=== PATIENT | female | born 1950 | race Caucasian/White ===

== ENCOUNTER 2018-07-19 17:43 | Observation (INO) | payer SELFPAY ==
[2018-07-19] MEDS ORDERED: Sodium Chloride 0.9% 500 ML IV ONE (18:14)
--- NOTE | 2018-07-19 18:22 | C.PDOC ---
History Of Present Illness 67 y/o female, with history of hypertension, comes in for evaluation of dizziness and feeling nauseous. Patient is also complaining of right ear tinnitus that started this afternoon. Patient was a poor historian. She states she feels like everything is moving. Otherwise she denies fever, chills, or vomiting, and has no other complaints. Time Seen by Provider: 07/19/18 18:05 Chief Complaint (Nursing): GI Problem History Per: Patient History/Exam Limitations: None Onset/Duration Of Symptoms: Hrs Current Symptoms Are (Timing): Still Present Past Medical History Reviewed: Historical Data, Nursing Documentation, Vital Signs Vital Signs: Last Vital Signs Temp 98.6 F 07/19/18 17:52 Pulse 61 07/19/18 17:52 Resp 20 07/19/18 17:52 BP 162/88 H 07/19/18 17:52 Pulse Ox 99 07/19/18 17:52 - Medical History PMH: Gastritis, HTN Surgical History: Cholecystectomy Family History: States: No Known Family Hx - Social History Hx Tobacco Use: No Hx Alcohol Use: No Hx Substance Use: No - Immunization History Hx Tetanus Toxoid Vaccination: No Hx Influenza Vaccination: No Hx Pneumococcal Vaccination: No Review Of Systems Except As Marked, All Systems Reviewed And Found Negative. Constitutional: Negative for: Fever, Chills ENT: Positive for: Other (Right ear tinnitus) Gastrointestinal: Positive for: Nausea. Negative for: Vomiting Neurological: Positive for: Dizziness Physical Exam - Physical Exam Appears: Non-toxic, No Acute Distress Skin: Warm, Dry Head: Atraumatic, Normacephalic Eye(s): bilateral: Other (horizontal nystagmus) Oral Mucosa: Moist Neck: Supple Cardiovascular: Rhythm Regular, No Murmur Respiratory: Normal Breath Sounds, No Rales, No Rhonchi, No Wheezing Gastrointestinal/Abdominal: Soft, No Tenderness, No Guarding, No Rebound Extremity: No Pedal Edema Extremity: Bilateral: Atraumatic, Normal ROM Neurological/Psych: Oriented x3, Normal Speech, Normal Cognition Gait: Steady ED Course And Treatment - Laboratory Results Result Diagrams: 07/21/18 07:54 07/21/18 07:54 O2 Sat by Pulse Oximetry: 99 (RA) Pulse Ox Interpretation: Normal (R) - CT Scan/US Head CT Other Rad Studies (CT/US): Read By Radiologist, Radiology Report Reviewed CT/US Interpretation: IMPRESSION: 1. Age-appropriate cerebellar and cerebral atrophy. 2. Mild chronic microvascular disease. 3. No evidence of acute intracranial pathology. NIHSS Stroke Scale - Date/Time Evaluation Performed Date Performed: 07/19/18 Time Performed: 19:00 When Was NIHSS Performed: Baseline - How Severe is the Stoke Level of Consciousness: 0=Alert LOC to Questions: 0=Both comments correct LOC to commands: 0=Obeys both correctly Best Gaze: 0=Normal Visual: 0=No visual loss Facial: 0=Normal Motor Arm - Left: 0=No drift Motor Arm - Right: 0=No drift Motor Leg - Left: 0=No drift Motor Leg - Right: 0=No drift Limb Ataxia: 0=Absent Sensory: 0=Normal Best Language: 0=No aphasia Dysarthia: 0=Normal articulation Extinction & Inattention (Neglect): 0=Normal, no object Score: 0 rTPA Inclusion/Exclusion - Refusal of Treatment Patient Refused Treatment: No - Inclusion Criteria for Altepase Patient is 18 years or Older: Yes The Clinical Diagnosis of Ischemic Stroke That is Causing a Potentially Disabling Neurological Deficit: No Time of Onset is Well Established to be Less Than 270 Minute Before Treatment Would Begin: No Risk/Benefit Discussed With Patient/Family Member Present: No Medical Decision Making Medical Decision Making: likely peripheral vertigo. Plan: --Head CT --Labs --UA --Antivert 25 mg PO --IV fluids --Zofran 4 mg IV suspect peripheral vertigo, although pt persistently symtpomatic. asa given will admit to ro posterior cva. Disposition - Disposition Disposition: HOSPITALIZED Disposition Time: 08:00 Condition: GOOD - Clinical Impression Clinical Impression: Vertigo - Scribe Statement The provider has reviewed the documentation as recorded by the Janel Vyas Provider Attestation: All medical record entries made by the Janel were at my direction and personally dictated by me. I have reviewed the chart and agree that the record accurately reflects my personal performance of the history, physical exam, medical decision making, and the department course for this patient. I have also personally directed, reviewed, and agree with the discharge instructions and disposition.
[2018-07-19] MEDS ORDERED: Sodium Chloride 0.9% 1,000 ML ONE (18:25)
[2018-07-19 18:36] LABS: BASO % 0.2 % (0.0-2.0); EOS % 0.7 % (0.0-4.0); HEMOGLOBIN 13.8 g/dL (11.0-16.0); LYMPH # 1.7 K/uL (1.0-4.3); LYMPH % 28.5 % (20.0-40.0); MEAN CELL VOLUME 87.1 fL (81.0-99.0); MEAN CORPUSCULAR HEMOGLOBIN 28.4 pg (27.0-31.0); MEAN CORPUSCULAR HGB CONC 32.6 g/dL (33.0-37.0); MEAN PLATELET VOLUME 8.5 fL (7.2-11.7); MONO # 0.4 K/uL (0.0-0.8); MONO % 7.2 % (0.0-10.0); NEUT # 3.7 K/uL (1.8-7.0); NEUT % 63.4 % (50.0-75.0); RBC 4.86 Mil/uL (3.80-5.20); RED CELL DISTRIBUTION WIDTH 14.2 % (11.5-14.5); WHITE BLOOD COUNT 5.9 K/uL (4.8-10.8)
[2018-07-19 18:46] LABS: PROTHROMBIN TIME 11.4 SECONDS (9.7-12.2)
[2018-07-19 18:49] LABS: ALB/GLOB RATIO 1.5 (1.0-2.1); ALBUMIN 4.6 g/dL (3.5-5.0); ALT/SGPT 21 U/L (9-52); AST/SGOT 27 U/L (14-36); BLOOD UREA NITROGEN 16 mg/dL (7-17); CALCIUM 10.2 mg/dl (8.6-10.4); GFR NON-AFRICAN AMERICAN > 60
[2018-07-19 19:17] LABS: SQUAMOUS EPITHIAL 10 /hpf (0-5); URINE BACTERIA MANY (<OCC); URINE BILIRUBIN NEGATIVE (NEGATIVE); URINE BLOOD NEGATIVE (NEGATIVE); URINE CLARITY Hazy (Clear); URINE COLOR Yellow (YELLOW); URINE GLUCOSE (UA) NORMAL (Normal); URINE LEUKOCYTE ESTERASE 2+ Leu/uL (Negative); URINE PROTEIN NEGATIVE (NEGATIVE); URINE UROBILINOGEN NORMAL mg/dL (0.2-1.0)
--- NOTE | 2018-07-19 20:27 | CP.PCM.HP ---
<Damian Jung - Last Filed: 07/20/18 00:01> History of Present Illness - History of Present Illness History of Present Illness: H&P for Risk Analyst Dr. Ramos. 67 F w/ PMhx of HTN presents to ED for dizziness & nausea. Patient states symptoms began in the morning after she woke up and noticed symptoms progressively got worse, prompting her to the hospital. Patient describes the dizziness as she is spinning around. Patient denies vomiting, SOB, chest pain, headaches, vision changes. Patient admits to ringing in the ear since this morning. Patient reports she occasionally uses some type of spray to clean ears; however, she has not been able to fully clean her ears today. Patient denies sick contacts, recent illness. Patient reports having traveled from [facility] approximately 15 days prior. ROS: Denies headaches, vision changes, fevers, chills, chest pain, SOB, cough, abdominal pain, constipation, diarrhea, dysuria. PMD: None PMHx: HTN Meds: Telmisartan 40 PO daily Allergies: NKDA PSHx: cholecystectomy, SHx: Denies ETOH, tobacco, illicit drug use FHx: Denies any family history Present on Admission - Present on Admission Any Indicators Present on Admission: No History of DVT/PE: No History of Uncontrolled Diabetes: No Urinary Catheter: No Decubitus Ulcer Present: No Review of Systems - Constitutional Constitutional: absent: Chills, Fever - EENT Eyes: absent: Blurred Vision, Change in Vision Ears: Tinnitus, Dizziness. absent: Ear Discharge, Ear Pain Nose/Mouth/Throat: absent: Nasal Congestion, Nose Pain - Cardiovascular Cardiovascular: absent: Chest Pain, Chest Pain at Rest - Respiratory Respiratory: absent: Cough, Dyspnea, Hemoptysis - Gastrointestinal Gastrointestinal: absent: Abdominal Pain, Constipation, Diarrhea - Genitourinary Genitourinary: absent: Difficulty Urinating, Hematuria - Musculoskeletal Musculoskeletal: absent: Abnormal Gait, Arthralgias - Neurological Neurological: Abnormal Hearing, Dizziness. absent: Numbness, Loss of Vision - Endocrine Endocrine: absent: Flushing, Heat Intolorance Past Patient History - Past Social History Smoking Status: Never Smoked - CARDIAC Hx Hypertension: Yes - GASTROINTESTINAL Hx Gastritis: Yes - PSYCHIATRIC Hx Substance Use: No - SURGICAL HISTORY Hx Cholecystectomy: Yes - ANESTHESIA Hx Anesthesia: No Hx Anesthesia Reactions: No Meds Allergies/Adverse Reactions: Allergies Allergy/AdvReac Type Severity Reaction Status Date / Time No Known Allergies Allergy Unverified 07/19/18 17:54 Physical Exam - Constitutional Appears: Non-toxic, No Acute Distress - Head Exam Head Exam: NORMAL INSPECTION - Eye Exam Eye Exam: EOMI, Normal appearance Pupil Exam: NORMAL ACCOMODATION, PERRL - ENT Exam ENT Exam: Mucous Membranes Moist, TM's Normal Bilaterally Additional comments: No erythema around tympanic membrane, no effusion noted, no ear wax buildup - Neck Exam Neck exam: Negative for: Lymphadenopathy, Thyromegaly - Respiratory Exam Respiratory Exam: Clear to Auscultation Bilateral, NORMAL BREATHING PATTERN. absent: Rales, Rhonchi, Wheezes - Cardiovascular Exam Cardiovascular Exam: +S1, +S2, Systolic Murmur. absent: +S4 - GI/Abdominal Exam GI & Abdominal Exam: Normal Bowel Sounds, Soft - Extremities Exam Extremities exam: Positive for: full ROM, normal inspection. Negative for: calf tenderness, pedal edema - Back Exam Back exam: absent: CVA tenderness (L), CVA tenderness (R) - Neurological Exam Neurological exam: Alert, CN II-XII Intact, Oriented x3 Additional comments: Pt reports dizziness sitting up. Unable to test gait. - Psychiatric Exam Psychiatric exam: Normal Affect, Normal Mood - Skin Skin Exam: Dry, Intact, Normal Color, Warm Results - Vital Signs Recent Vital Signs: Last Vital Signs Temp 98.6 F 07/19/18 17:52 Pulse 58 L 07/19/18 18:55 Resp 11 L 07/19/18 18:55 BP 164/71 H 07/19/18 18:55 Pulse Ox 99 07/19/18 18:57 - Labs Result Diagrams: 07/19/18 18:27 07/19/18 18:27 Labs: Laboratory Results - last 24 hr 07/19/18 07/19/18 07/19/18 18:04 18:27 18:27 WBC 5.9 RBC 4.86 Hgb 13.8 Hct 42.3 MCV 87.1 MCH 28.4 MCHC 32.6 L RDW 14.2 Plt Count 192 MPV 8.5 Neut % (Auto) 63.4 Lymph % (Auto) 28.5 [place] % (Auto) 7.2 Eos % (Auto) 0.7 Baso % (Auto) 0.2 Neut # (Auto) 3.7 Lymph # (Auto) 1.7 [place] # (Auto) 0.4 Eos # (Auto) 0.0 Baso # (Auto) 0.0 PT 11.4 INR 1.0 APTT 35 H Sodium Potassium Chloride Carbon Dioxide Anion Gap BUN Creatinine Est GFR ( Amer) Est GFR (Non-Af Amer) POC Glucose (mg/dL) 137 H Random Glucose Calcium Total Bilirubin AST ALT Alkaline Phosphatase Total Protein Albumin Globulin Albumin/Globulin Ratio Urine Color Urine Clarity Urine pH Ur Specific [place] Urine Protein Urine Glucose (UA) Urine Ketones Urine Blood Urine Nitrate Urine Bilirubin Urine Urobilinogen Ur Leukocyte Esterase Urine WBC (Auto) Urine RBC (Auto) Ur Squamous Epith Cells Urine Bacteria 07/19/18 07/19/18 18:27 19:06 WBC RBC Hgb Hct MCV MCH MCHC RDW Plt Count MPV Neut % (Auto) Lymph % (Auto) [place] % (Auto) Eos % (Auto) Baso % (Auto) Neut # (Auto) Lymph # (Auto) [place] # (Auto) Eos # (Auto) Baso # (Auto) PT INR APTT Sodium 137 Potassium 3.9 Chloride 104 Carbon Dioxide 27 Anion Gap 11 BUN 16 Creatinine 0.8 Est GFR ( Amer) > 60 Est GFR (Non-Af Amer) > 60 POC Glucose (mg/dL) Random Glucose 132 H D Calcium 10.2 Total Bilirubin 0.5 AST 27 ALT 21 Alkaline Phosphatase 119 Total Protein 7.6 Albumin 4.6 Globulin 3.0 Albumin/Globulin Ratio 1.5 Urine Color Yellow Urine Clarity Hazy Urine pH 5.0 Ur Specific [place] 1.025 Urine Protein Negative Urine Glucose (UA) Normal Urine Ketones Negative Urine Blood Negative Urine Nitrate Negative Urine Bilirubin Negative Urine Urobilinogen Normal Ur Leukocyte Esterase 2+ H Urine WBC (Auto) 26 H Urine RBC (Auto) 5 H Ur Squamous Epith Cells 10 H Urine Bacteria Many H Assessment & Plan - Assessment and Plan (Free Text) Assessment: 67 F w/ PMhx of HTN presents to ED with sensation of dizziness & nausea, likely vertigo, systolic murmor noted on physical examination w/ no known prior history. Plan: Vertigo - CT head: negative - meclazine 25 mg PO Q6H - Fall precautions New Heart Murmur - F/u 2D echo in AM ? UTI - initial UA not a clean catch - repeat UA History of hypertension - c/w home medication telmisartan 40 PO daily PPx - DVT: SCDs, heparin 5000 SC Q8H <Casey Ramos - Last Filed: 07/20/18 06:13> Results - Vital Signs Recent Vital Signs: Last Vital Signs Temp 98 F 07/20/18 04:44 Pulse 55 L 07/20/18 04:44 Resp 16 07/20/18 04:44 BP 134/75 07/20/18 04:44 Pulse Ox 97 07/20/18 04:44 - Labs Result Diagrams: 07/20/18 05:23 07/20/18 05:23 Labs: Laboratory Results - last 24 hr 07/19/18 07/19/18 07/19/18 18:04 18:27 18:27 WBC 5.9 RBC 4.86 Hgb 13.8 Hct 42.3 MCV 87.1 MCH 28.4 MCHC 32.6 L RDW 14.2 Plt Count 192 MPV 8.5 Neut % (Auto) 63.4 Lymph % (Auto) 28.5 [place] % (Auto) 7.2 Eos % (Auto) 0.7 Baso % (Auto) 0.2 Neut # (Auto) 3.7 Lymph # (Auto) 1.7 [place] # (Auto) 0.4 Eos # (Auto) 0.0 Baso # (Auto) 0.0 PT 11.4 INR 1.0 APTT 35 H Sodium Potassium Chloride Carbon Dioxide Anion Gap BUN Creatinine Est GFR ( Amer) Est GFR (Non-Af Amer) POC Glucose (mg/dL) 137 H Random Glucose Calcium Phosphorus Magnesium Total Bilirubin AST ALT Alkaline Phosphatase Total Protein Albumin Globulin Albumin/Globulin Ratio Urine Color Urine Clarity Urine pH Ur Specific [place] Urine Protein Urine Glucose (UA) Urine Ketones Urine Blood Urine Nitrate Urine Bilirubin Urine Urobilinogen Ur Leukocyte Esterase Urine WBC (Auto) Urine RBC (Auto) Ur Squamous Epith Cells Urine Bacteria 07/19/18 07/19/18 07/20/18 18:27 19:06 05:23 WBC 4.8 RBC 4.40 Hgb 12.7 Hct 38.2 MCV 87.0 MCH 28.9 MCHC 33.2 RDW 14.0 Plt Count 174 MPV 8.4 Neut % (Auto) 46.9 L Lymph % (Auto) 43.1 H [place] % (Auto) 8.3 Eos % (Auto) 1.3 Baso % (Auto) 0.4 Neut # (Auto) 2.3 Lymph # (Auto) 2.1 [place] # (Auto) 0.4 Eos # (Auto) 0.1 Baso # (Auto) 0.0 PT INR APTT Sodium 137 Potassium 3.9 Chloride 104 Carbon Dioxide 27 Anion Gap 11 BUN 16 Creatinine 0.8 Est GFR ( Amer) > 60 Est GFR (Non-Af Amer) > 60 POC Glucose (mg/dL) Random Glucose 132 H D Calcium 10.2 Phosphorus Magnesium Total Bilirubin 0.5 AST 27 ALT 21 Alkaline Phosphatase 119 Total Protein 7.6 Albumin 4.6 Globulin 3.0 Albumin/Globulin Ratio 1.5 Urine Color Yellow Urine Clarity Hazy Urine pH 5.0 Ur Specific [place] 1.025 Urine Protein Negative Urine Glucose (UA) Normal Urine Ketones Negative Urine Blood Negative Urine Nitrate Negative Urine Bilirubin Negative Urine Urobilinogen Normal Ur Leukocyte Esterase 2+ H Urine WBC (Auto) 26 H Urine RBC (Auto) 5 H Ur Squamous Epith Cells 10 H Urine Bacteria Many H 07/20/18 05:23 WBC RBC Hgb Hct MCV MCH MCHC RDW Plt Count MPV Neut % (Auto) Lymph % (Auto) [place] % (Auto) Eos % (Auto) Baso % (Auto) Neut # (Auto) Lymph # (Auto) [place] # (Auto) Eos # (Auto) Baso # (Auto) PT INR APTT Sodium 139 Potassium 4.1 Chloride 107 Carbon Dioxide 27 Anion Gap 9 L BUN 15 Creatinine 0.7 Est GFR ( Amer) > 60 Est GFR (Non-Af Amer) > 60 POC Glucose (mg/dL) Random Glucose 105 D Calcium 9.6 Phosphorus 4.2 Magnesium 2.0 Total Bilirubin 0.3 AST 21 ALT 22 Alkaline Phosphatase 89 Total Protein 6.4 Albumin 3.9 Globulin 2.5 Albumin/Globulin Ratio 1.5 Urine Color Urine Clarity Urine pH Ur Specific [place] Urine Protein Urine Glucose (UA) Urine Ketones Urine Blood Urine Nitrate Urine Bilirubin Urine Urobilinogen Ur Leukocyte Esterase Urine WBC (Auto) Urine RBC (Auto) Ur Squamous Epith Cells Urine Bacteria Assessment & Plan - Date & Time Date: 07/20/18 (I have seen and examined the patient. I agree with the findings and plan of care as documented by Dr. Jung. Patient with vertigo. Meclizine. Fall precautions. Newly recognized heart murmur. Check 2D echo. Denies chest pain. UTI. Repeat UA. Check urine cultures. Monitor for acute changes.) Time: 06:12 Attending/Attestation - Attestation I have personally seen and examined this patient.: Yes I have fully participated in the care of the patient.: Yes I have reviewed all pertinent clinical information: Yes
[2018-07-20 05:26] LABS: BASO % 0.4 % (0.0-2.0); EOS # 0.1 K/uL (0.0-0.7); EOS % 1.3 % (0.0-4.0); HEMOGLOBIN 12.7 g/dL (11.0-16.0); LYMPH # 2.1 K/uL (1.0-4.3); LYMPH % 43.1 % (20.0-40.0); MEAN CORPUSCULAR HEMOGLOBIN 28.9 pg (27.0-31.0); MEAN CORPUSCULAR HGB CONC 33.2 g/dL (33.0-37.0); MEAN PLATELET VOLUME 8.4 fL (7.2-11.7); MONO # 0.4 K/uL (0.0-0.8); MONO % 8.3 % (0.0-10.0); NEUT # 2.3 K/uL (1.8-7.0); NEUT % 46.9 % (50.0-75.0); NRBC % 0.1 % (0.0-2.0); RBC 4.4 Mil/uL (3.80-5.20); WHITE BLOOD COUNT 4.8 K/uL (4.8-10.8)
[2018-07-20 05:39] LABS: ALB/GLOB RATIO 1.5 (1.0-2.1); ALBUMIN 3.9 g/dL (3.5-5.0); ALT/SGPT 22 U/L (9-52); AST/SGOT 21 U/L (14-36); BLOOD UREA NITROGEN 15 mg/dL (7-17); CALCIUM 9.6 mg/dl (8.6-10.4); GFR NON-AFRICAN AMERICAN > 60
--- NOTE | 2018-07-20 07:44 | CP.PCM.PN ---
<Erick Ortiz - Last Filed: 07/20/18 18:07> Subjective - Date & Time of Evaluation Date of Evaluation: 07/20/18 Time of Evaluation: 10:19 - Subjective Subjective: Medicine progress note for Dr. Rodrigues Pt seen and examined at bedside. Resting comfortably. Pt continues to reports a whooshing sensation in the right ear associated with decreased hearing in that ear, and dizziness described as the room spinning when she moves her head or gets up from the supine position. Denies fever, chills, headache, visual changes, chest pain, sob, abdominal pain, n/v/d. Objective - Vital Signs/Intake and Output Vital Signs (last 24 hours): Temp Pulse Resp BP Pulse Ox 97.8 F 55 L 15 134/75 97 07/20/18 06:00 07/20/18 04:44 07/20/18 05:39 07/20/18 04:44 07/20/18 04:44 Intake and Output: 07/20/18 07/20/18 06:59 18:59 Intake Total 0 Output Total 0 Balance 0 - Medications Medications: Current Medications Heparin Sodium (Porcine) (Heparin) 5,000 units SC Q8 [facility] Last Admin: 07/20/18 06:21 Dose: 5,000 units Ceftriaxone Sodium 1 gm/ (Sodium Chloride) 100 mls @ 100 mls/hr IVPB DAILY [facility]; Protocol Lactobacillus Acidophilus (Lactobacillus) 1 cap PO BID DANTE Meclizine HCl (Antivert) 25 mg PO Q6 [facility] Last Admin: 07/20/18 06:21 Dose: 25 mg - Labs Labs: 07/20/18 05:23 07/20/18 05:23 PT 11.4 SECONDS (9.7-12.2) 07/19/18 18:27 INR 1.0 07/19/18 18:27 APTT 35 SECONDS (21-34) H 07/19/18 18:27 - Constitutional Appears: Non-toxic, No Acute Distress - Head Exam Head Exam: ATRAUMATIC, NORMAL INSPECTION - Eye Exam Eye Exam: EOMI, Normal appearance, PERRL - ENT Exam ENT Exam: Mucous Membranes Moist Additional comments: no nystagmus on rapid head movement - Respiratory Exam Respiratory Exam: Clear to Ausculation Bilateral. absent: Rales, Rhonchi, Wheezes - Cardiovascular Exam Cardiovascular Exam: REGULAR RHYTHM, +S1, +S2 - GI/Abdominal Exam GI & Abdominal Exam: Soft, Normal Bowel Sounds. absent: Firm, Guarding, Rigid, Tenderness - Extremities Exam Extremities Exam: Full ROM, Normal Capillary Refill. absent: Calf Tenderness, Pedal Edema, Tenderness - Back Exam Back Exam: NORMAL INSPECTION - Neurological Exam Neurological Exam: Alert, Awake, CN II-XII Intact (decreased hearing in the r ight ear), Oriented x3 Neuro motor strength exam: Left Upper Extremity: 5, Right Upper Extremity: 5, Left Lower Extremity: 5, Right Lower Extremity: 5 Additional comments: (-) pronator drift Normal heel to alves Normal babinski bilaterally - Psychiatric Exam Psychiatric exam: Normal Affect, Normal Mood - Skin Skin Exam: Dry, Normal Color, Warm Assessment and Plan - Assessment and Plan (Free Text) Assessment: 67 F w/ PMhx of HTN presents to ED with sensation of dizziness & nausea, likely vertigo, systolic murmur noted on physical examination w/ no known prior history. Plan: Dizziness, with tinnitus and decreased right hearing - CT head: No acute intracranial abnormality. Chronic microvascular ischemic changes. Diffuse generalized parenchymal atrophy. - Troponin x1 is normal - EKG show sinus bradycardia at 55, no acute STTW changes. - Meclizine 25 mg PO Q6H - Fall precautions - Neurology consulted. - ENT consulted. - MRI brain with and without contrast pending - avoid beta blockers due to bradycardia Systolic murmur - Echocardiogram pending Abnormal Urinalysis - initial UA not a clean catch as multiple squamous cells are present - repeat UA shows no abnormalities - pt without symptoms, afebrile, no leukocytosis - Rocephin 1g IVPB once daily - f/u urine culture History of hypertension - Continue to hold home medication Telmisartan 40 PO daily PPx - VTE: SCDs, heparin 5000 SC Q8H - GI: no indication at this time - HHD <Vicky Rodrigues V - Last Filed: 07/21/18 18:15> Objective - Vital Signs/Intake and Output Vital Signs (last 24 hours): Temp Pulse Resp BP Pulse Ox 98.5 F 62 20 139/80 97 07/21/18 08:05 07/21/18 12:00 07/21/18 08:05 07/21/18 08:05 07/21/18 08:05 - Labs Labs: 07/21/18 07:54 07/21/18 07:54 PT 11.4 SECONDS (9.7-12.2) 07/19/18 18:27 INR 1.0 07/19/18 18:27 APTT 35 SECONDS (21-34) H 07/19/18 18:27 Attending/Attestation - Attestation I have personally seen and examined this patient.: Yes I have fully participated in the care of the patient.: Yes I have reviewed all pertinent clinical information, including history, physical exam and plan: Yes Notes (Text): This is a late computer entry for July 20, 2018. Patient seen, examined, case discussed with medical planner. Patient seen in the intensive care unit as a stepdown telemetry patient. Patient reporting that she feels dizziness all the time. Patient reports this is recent as of the past 2 days. She does report some tinnitus over the right side of the ear. She denies any upper respiratory symptoms. Denies any associated nausea or vomiting. We have consulted both ENT and neurology on the case. Patient awaiting brain MRI to rule out occult pathology related to the tinnitus. Patient has an abnormal UA likely contamination is placed on empiric Rocephin in the meantime. Patient is ordered for echocardiogram for a noted systolic murmur heard by resident. Patient placed on prophylactic aspirin given that her age is above a 49 with a known history of hypertension as a cardioprotective agent. Physical therapy occupational therapy consulted. Patient no noted neuro deficits of per my exam. No noted nystagmus. Unable to elicit dizziness when turning head.
--- NOTE | 2018-07-20 08:15 | CT ---
Date of service: 07/19/2018 PROCEDURE: CT HEAD WITHOUT CONTRAST. HISTORY: dizziness COMPARISON: None available. TECHNIQUE: Axial computed tomography images were obtained through the head/brain without intravenous contrast. Radiation dose: Total exam DLP = 1044.0 mGy-cm. This CT exam was performed using one or more of the following dose reduction techniques: Automated exposure control, adjustment of the mA and/or kV according to patient size, and/or use of iterative reconstruction technique. FINDINGS: HEMORRHAGE: No intracranial hemorrhage. BRAIN: No mass effect or edema. Scattered focal lucencies in the subcortical and periventricular white matter suggestive for chronic microvascular ischemic change. Diffuse generalized parenchymal atrophy with bifrontal extra-axial prominence. Bilateral basal ganglia calcifications. VENTRICLES: Unremarkable. No hydrocephalus. CALVARIUM: Unremarkable. PARANASAL SINUSES: Unremarkable as visualized. No significant inflammatory changes. MASTOID AIR CELLS: Unremarkable as visualized. No inflammatory changes. OTHER FINDINGS: None. IMPRESSION: No acute intracranial abnormality. Chronic microvascular ischemic changes. Diffuse generalized parenchymal atrophy. If symptoms persists, consider correlation with MRI. A preliminary report was generated at 6:54 p.m. on 07/19/[address] To Mclean from [employer].
[2018-07-20 08:43] LABS: CK-MB 0.44 ng/mL (0.0-3.38)
--- NOTE | 2018-07-20 09:43 | CP.PCM.CON ---
History of Present Illness - History of Present Illness History of Present Illness: 67 F w/ PMhx of HTN presented to ED for worsening dizziness since awakening yesterday morning. Associated symptoms include unsteady gait, R ear hearing loss. States she thought her symptoms were due to her blood pressure, however symptoms persisted after taking her BP meds. Patient states she has never experienced these symptoms before. Denies headaches, vision changes, fevers, chills, confusion, focal weakness or numbness. CT head shows chronic microvascular changes and generalized atrophy, however no acute intracranial abnormality. MRI brain is pending. Review of Systems - Review of Systems All systems: reviewed and no additional remarkable complaints except (as per HPI) Past Patient History - Past Social History Smoking Status: Never Smoked - CARDIAC Hx Hypertension: Yes - HEENT Other/Comment: issues with right ear - RENAL Hx Chronic Kidney Disease: No Hx Dialysis: No Hx Kidney Stones: No Hx Neurogenic Bladder: No Hx Pyelonephritis: No Hx Renal (Kidney) Cancer: No Hx Renal Failure: No - MUSCULOSKELETAL/RHEUMATOLOGICAL Hx Falls: No - GASTROINTESTINAL Hx Gastritis: Yes - PSYCHIATRIC Hx Substance Use: No - SURGICAL HISTORY Hx Cholecystectomy: Yes - ANESTHESIA Hx Anesthesia: No Hx Anesthesia Reactions: No Hx Malignant Hyperthermia: No Has any member of the family had a problem w/ anesthesia?: No Meds Allergies/Adverse Reactions: Allergies Allergy/AdvReac Type Severity Reaction Status Date / Time No Known Allergies Allergy Unverified 07/19/18 17:54 - Medications Medications: Current Medications Heparin Sodium (Porcine) (Heparin) 5,000 units SC Q8 [facility] Last Admin: 07/20/18 06:21 Dose: 5,000 units Ceftriaxone Sodium 1 gm/ (Sodium Chloride) 100 mls @ 100 mls/hr IVPB DAILY [facility]; Protocol Lactobacillus Acidophilus (Lactobacillus) 1 cap PO BID DANTE Meclizine HCl (Antivert) 25 mg PO Q6 [facility] Last Admin: 07/20/18 06:21 Dose: 25 mg Physical Exam - Constitutional Appears: Non-toxic, No Acute Distress - Head Exam Head Exam: ATRAUMATIC, NORMOCEPHALIC - Eye Exam Eye Exam: EOMI, Normal appearance, PERRL. absent: Nystagmus Pupil Exam: NORMAL ACCOMODATION - ENT Exam ENT Exam: Mucous Membranes Moist, TM's Normal Bilaterally - Neck Exam Neck exam: Positive for: Full Rom, Normal Inspection - Respiratory Exam Respiratory Exam: NORMAL BREATHING PATTERN. absent: Respiratory Distress - Extremities Exam Extremities exam: Positive for: normal inspection. Negative for: tenderness - Neurological Exam Neurological exam: Alert (R ear hearing loss), Oriented x3 Additional comments: No facial asymmetry. 5/5 muscle strength all extremities, sensation intact. No dysdiadochokinesis. Hyperreflexive. - Psychiatric Exam Psychiatric exam: Normal Affect, Normal Mood - Skin Skin Exam: Dry, Intact, Normal Color Results - Vital Signs Recent Vital Signs: Last Vital Signs Temp 97.8 F 07/20/18 06:00 Pulse 55 L 07/20/18 04:44 Resp 15 07/20/18 05:39 BP 134/75 07/20/18 04:44 Pulse Ox 97 07/20/18 04:44 - Labs Result Diagrams: 07/20/18 05:23 07/20/18 05:23 Labs: Laboratory Results - last 24 hr 07/19/18 07/19/18 07/19/18 18:04 18:27 18:27 WBC 5.9 RBC 4.86 Hgb 13.8 Hct 42.3 MCV 87.1 MCH 28.4 MCHC 32.6 L RDW 14.2 Plt Count 192 MPV 8.5 Neut % (Auto) 63.4 Lymph % (Auto) 28.5 [place] % (Auto) 7.2 Eos % (Auto) 0.7 Baso % (Auto) 0.2 Neut # (Auto) 3.7 Lymph # (Auto) 1.7 [place] # (Auto) 0.4 Eos # (Auto) 0.0 Baso # (Auto) 0.0 PT 11.4 INR 1.0 APTT 35 H Sodium Potassium Chloride Carbon Dioxide Anion Gap BUN Creatinine Est GFR ( Amer) Est GFR (Non-Af Amer) POC Glucose (mg/dL) 137 H Random Glucose Hemoglobin A1c Calcium Phosphorus Magnesium Total Bilirubin AST ALT Alkaline Phosphatase Total Creatine Kinase CK-MB (Mass) Troponin I Total Protein Albumin Globulin Albumin/Globulin Ratio Urine Color Urine Clarity Urine pH Ur Specific [place] Urine Protein Urine Glucose (UA) Urine Ketones Urine Blood Urine Nitrate Urine Bilirubin Urine Urobilinogen Ur Leukocyte Esterase Urine WBC (Auto) Urine RBC (Auto) Ur Squamous Epith Cells Urine Bacteria 07/19/18 07/19/18 07/20/18 18:27 19:06 05:23 WBC 4.8 RBC 4.40 Hgb 12.7 Hct 38.2 MCV 87.0 MCH 28.9 MCHC 33.2 RDW 14.0 Plt Count 174 MPV 8.4 Neut % (Auto) 46.9 L Lymph % (Auto) 43.1 H [place] % (Auto) 8.3 Eos % (Auto) 1.3 Baso % (Auto) 0.4 Neut # (Auto) 2.3 Lymph # (Auto) 2.1 [place] # (Auto) 0.4 Eos # (Auto) 0.1 Baso # (Auto) 0.0 PT INR APTT Sodium 137 Potassium 3.9 Chloride 104 Carbon Dioxide 27 Anion Gap 11 BUN 16 Creatinine 0.8 Est GFR ( Amer) > 60 Est GFR (Non-Af Amer) > 60 POC Glucose (mg/dL) Random Glucose 132 H D Hemoglobin A1c Calcium 10.2 Phosphorus Magnesium Total Bilirubin 0.5 AST 27 ALT 21 Alkaline Phosphatase 119 Total Creatine Kinase Cancelled CK-MB (Mass) Cancelled Troponin I Cancelled Total Protein 7.6 Albumin 4.6 Globulin 3.0 Albumin/Globulin Ratio 1.5 Urine Color Yellow Urine Clarity Hazy Urine pH 5.0 Ur Specific [place] 1.025 Urine Protein Negative Urine Glucose (UA) Normal Urine Ketones Negative Urine Blood Negative Urine Nitrate Negative Urine Bilirubin Negative Urine Urobilinogen Normal Ur Leukocyte Esterase 2+ H Urine WBC (Auto) 26 H Urine RBC (Auto) 5 H Ur Squamous Epith Cells 10 H Urine Bacteria Many H 07/20/18 07/20/18 05:23 08:10 WBC RBC Hgb Hct MCV MCH MCHC RDW Plt Count MPV Neut % (Auto) Lymph % (Auto) [place] % (Auto) Eos % (Auto) Baso % (Auto) Neut # (Auto) Lymph # (Auto) [place] # (Auto) Eos # (Auto) Baso # (Auto) PT INR APTT Sodium 139 Potassium 4.1 Chloride 107 Carbon Dioxide 27 Anion Gap 9 L BUN 15 Creatinine 0.7 Est GFR ( Amer) > 60 Est GFR (Non-Af Amer) > 60 POC Glucose (mg/dL) Random Glucose 105 D Hemoglobin A1c 5.8 Calcium 9.6 Phosphorus 4.2 Magnesium 2.0 Total Bilirubin 0.3 AST 21 ALT 22 Alkaline Phosphatase 89 Total Creatine Kinase 42 CK-MB (Mass) 0.44 Troponin I < 0.0120 Total Protein 6.4 Albumin 3.9 Globulin 2.5 Albumin/Globulin Ratio 1.5 Urine Color Urine Clarity Urine pH Ur Specific [place] Urine Protein Urine Glucose (UA) Urine Ketones Urine Blood Urine Nitrate Urine Bilirubin Urine Urobilinogen Ur Leukocyte Esterase Urine WBC (Auto) Urine RBC (Auto) Ur Squamous Epith Cells Urine Bacteria Assessment & Plan - Assessment and Plan (Free Text) Assessment: 67 year old female admitted for persistent dizziness and new onset R ear hearing loss Plan: -follow up MRI Discussed with Dr. Oleg Ordaz, PGY-1
[2018-07-20] MEDS ORDERED: TELMISARTAN 40 MG PO SCH (10:00)
[2018-07-20 10:02] LABS: SQUAMOUS EPITHIAL < 1 /hpf (0-5); URINE BACTERIA RARE (<OCC); URINE BILIRUBIN NEGATIVE (NEGATIVE); URINE BLOOD NEGATIVE (NEGATIVE); URINE CLARITY Clear (Clear); URINE COLOR Yellow (YELLOW); URINE GLUCOSE (UA) NORMAL (Normal); URINE LEUKOCYTE ESTERASE NEG Leu/uL (Negative); URINE PROTEIN NEGATIVE (NEGATIVE); URINE UROBILINOGEN NORMAL mg/dL (0.2-1.0)
[2018-07-20] MEDS: Lactobacillus Acidophilus 500 MU Cap PO SCH ×2 (10:10→19:00)
[2018-07-20] MEDS: Sodium Chloride 0.9% 1,000 ML IV SCH ×2 (11:00→22:15)
[2018-07-20] MEDS ORDERED: Gadodiamide 287 MG/ML VIAL (15ML) IV ONE (14:49)
[2018-07-21 08:06] VITALS: BP 139/80; RESP 20; TEMP 98.5
[2018-07-21 08:08] LABS: BASO % 0.2 % (0.0-2.0); EOS # 0.1 K/uL (0.0-0.7); HEMOGLOBIN 12.7 g/dL (11.0-16.0); LYMPH % 47.1 % (20.0-40.0); MEAN CELL VOLUME 87.7 fL (81.0-99.0); MEAN CORPUSCULAR HEMOGLOBIN 29.3 pg (27.0-31.0); MEAN CORPUSCULAR HGB CONC 33.4 g/dL (33.0-37.0); MEAN PLATELET VOLUME 8.8 fL (7.2-11.7); MONO # 0.3 K/uL (0.0-0.8); MONO % 6.4 % (0.0-10.0); NEUT # 1.9 K/uL (1.8-7.0); NEUT % 44.3 % (50.0-75.0); NRBC % 0.1 % (0.0-2.0); RBC 4.33 Mil/uL (3.80-5.20); RED CELL DISTRIBUTION WIDTH 14.3 % (11.5-14.5); WHITE BLOOD COUNT 4.2 K/uL (4.8-10.8)
[2018-07-21 08:36] LABS: ALB/GLOB RATIO 1.4 (1.0-2.1); ALBUMIN 3.5 g/dL (3.5-5.0); ALT/SGPT 19 U/L (9-52); AST/SGOT 20 U/L (14-36); BLOOD UREA NITROGEN 11 mg/dL (7-17); CALCIUM 9.3 mg/dl (8.6-10.4); GFR NON-AFRICAN AMERICAN > 60
--- NOTE | 2018-07-21 10:15 | CP.PCM.DIS ---
<Vicky Rodrigues V - Last Filed: 07/21/18 18:16> Provider - Provider Date of Admission: 07/19/18 19:38 Attending physician: Vicky Rodrigues DO Consults: 07/20/18 07:26 Neurology Consult Routine Comment: Consulting Provider: Bandar Dejesus Consulting Physician: Bandar Dejesus Reason for Consult: new onset vertigo, tinnitus 07/20/18 11:00 ENT [Otolaryngology Consult] Routine Consulting Provider: Sonu Strong Consulting Physician: Sonu Strong Reason for Consult: tinnitus, vertigo Diagnosis - Discharge Diagnosis (1) Acute labyrinthitis Status: Acute (2) Vertigo Status: Acute (3) Hypertension Status: Chronic Hospital Course - Lab Results Lab Results: Micro Results 07/20/18 09:17 Naris MRSA Culture (Admit) - Final MRSA NOT DETECTED 07/20/18 09:50 Urine Random Urine Culture - Final No Growth (<1,000 CFU/ML) Most Recent Lab Values WBC 4.2 K/uL (4.8-10.8) L 07/21/18 07:54 RBC 4.33 Mil/uL (3.80-5.20) 07/21/18 07:54 Hgb 12.7 g/dL (11.0-16.0) 07/21/18 07:54 Hct 38.0 % (34.0-47.0) 07/21/18 07:54 MCV 87.7 fL (81.0-99.0) 07/21/18 07:54 MCH 29.3 pg (27.0-31.0) 07/21/18 07:54 MCHC 33.4 g/dL (33.0-37.0) 07/21/18 07:54 RDW 14.3 % (11.5-14.5) 07/21/18 07:54 Plt Count 177 K/uL (130-400) 07/21/18 07:54 MPV 8.8 fL (7.2-11.7) 07/21/18 07:54 Neut % (Auto) 44.3 % (50.0-75.0) L 07/21/18 07:54 Lymph % (Auto) 47.1 % (20.0-40.0) H 07/21/18 07:54 [place] % (Auto) 6.4 % (0.0-10.0) 07/21/18 07:54 Eos % (Auto) 2.0 % (0.0-4.0) 07/21/18 07:54 Baso % (Auto) 0.2 % (0.0-2.0) 07/21/18 07:54 Neut # (Auto) 1.9 K/uL (1.8-7.0) 07/21/18 07:54 Lymph # (Auto) 2.0 K/uL (1.0-4.3) 07/21/18 07:54 [place] # (Auto) 0.3 K/uL (0.0-0.8) 07/21/18 07:54 Eos # (Auto) 0.1 K/uL (0.0-0.7) 07/21/18 07:54 Baso # (Auto) 0.0 K/uL (0.0-0.2) 07/21/18 07:54 PT 11.4 SECONDS (9.7-12.2) 07/19/18 18:27 INR 1.0 07/19/18 18:27 APTT 35 SECONDS (21-34) H 07/19/18 18:27 Sodium 140 mmol/L (132-148) 07/21/18 07:54 Potassium 4.2 mmol/L (3.6-5.2) 07/21/18 07:54 Chloride 107 mmol/L (98-107) 07/21/18 07:54 Carbon Dioxide 28 mmol/L (22-30) 07/21/18 07:54 Anion Gap 9 (10-20) L 07/21/18 07:54 BUN 11 mg/dL (7-17) 07/21/18 07:54 Creatinine 0.8 mg/dL (0.7-1.2) 07/21/18 07:54 Est GFR ( Amer) > 60 07/21/18 07:54 Est GFR (Non-Af Amer) > 60 07/21/18 07:54 POC Glucose (mg/dL) 137 mg/dL (65-110) H 07/19/18 18:04 Random Glucose 86 mg/dL (65-105) 07/21/18 07:54 Hemoglobin A1c 5.8 % (4.2-6.5) 07/20/18 08:10 Calcium 9.3 mg/dl (8.6-10.4) 07/21/18 07:54 Phosphorus 4.2 mg/dL (2.5-4.5) 07/21/18 07:54 Magnesium 1.9 mg/dL (1.6-2.3) 07/21/18 07:54 Total Bilirubin 0.3 mg/dL (0.2-1.3) 07/21/18 07:54 AST 20 U/L (14-36) 07/21/18 07:54 ALT 19 U/L (9-52) 07/21/18 07:54 Alkaline Phosphatase 82 U/L (38-126) 07/21/18 07:54 Total Creatine Kinase 42 U/L (30-135) 07/20/18 05:23 CK-MB (Mass) 0.44 ng/mL (0.0-3.38) 07/20/18 05:23 Troponin I < 0.0120 ng/mL (0.00-0.120) 07/20/18 05:23 Total Protein 6.1 g/dL (6.3-8.3) L 07/21/18 07:54 Albumin 3.5 g/dL (3.5-5.0) 07/21/18 07:54 Globulin 2.6 gm/dL (2.2-3.9) 07/21/18 07:54 Albumin/Globulin Ratio 1.4 (1.0-2.1) 07/21/18 07:54 Urine Color Yellow (YELLOW) 07/20/18 09:50 Urine Clarity Clear (Clear) 07/20/18 09:50 Urine pH 5.0 (5.0-8.0) 07/20/18 09:50 Ur Specific [place] 1.018 (1.003-1.030) 07/20/18 09:50 Urine Protein Negative mg/dL (NEGATIVE) 07/20/18 09:50 Urine Glucose (UA) Normal mg/dL (Normal) 07/20/18 09:50 Urine Ketones Negative mg/dL (NEGATIVE) 07/20/18 09:50 Urine Blood Negative (NEGATIVE) 07/20/18 09:50 Urine Nitrate Negative (NEGATIVE) 07/20/18 09:50 Urine Bilirubin Negative (NEGATIVE) 07/20/18 09:50 Urine Urobilinogen Normal mg/dL (0.2-1.0) 07/20/18 09:50 Ur Leukocyte Esterase Neg Partha/uL (Negative) 07/20/18 09:50 Urine WBC (Auto) 1 /hpf (0-5) 07/20/18 09:50 Urine RBC (Auto) 1 /hpf (0-3) 07/20/18 09:50 Ur Squamous Epith Cells < 1 /hpf (0-5) 07/20/18 09:50 Urine Bacteria Rare (<OCC) 07/20/18 09:50 Discharge Plan - Discharge Medications Prescriptions: Aspirin [Ecotrin] 81 mg PO DAILY #30 tabec Famotidine [Pepcid] 20 mg PO BID #28 tab Meclizine [Meclizine*] 25 mg PO TID PRN #42 tab PRN Reason: Dizziness predniSONE [predniSONE Tab] 10 mg PO DAILY #48 tab - Follow Up Plan Condition: GOOD Disposition: HOME/ ROUTINE Instructions: Aspirin, Famotidine, Meclizine, Prednisone Additional Instructions: Patient is medically stable for discharge home as per Dr. Rodrigues. Prescriptions needed: Prednisone 10 mg 6 tab by mouth for 10 days. Followed by 4 tabs by mouth for 2 days, Followed by 2 tabs by mouth for 2 days. #48 Aspirin 81 mg one tab by mouth once daily at 8 am. #30 Pepcid 20 mg one tab by mouth twice daily, 8 am and 8 pm. #28 Meclizine 25 mg one tab by mouth as needed for dizziness up to three times per day (ever 8 hours). #42 Please hold your blood pressure medication. Take your Blood pressure at home and keep a diary. Follow up with PMD, or [facility], within 1 week of discharge. Please call to make an appointment. Please follow up with Dr. Strong, ENT, for hearing test. Pt may require further treatment if dizziness does not improve. Should pt return to [facility], please follow up with PMD within 1 week of discharge. And follow up with ENT physician in [facility] after completing Prednisone treatment. If symptoms worsen, please head to the nearest Emergency Department for further evaluation. Instruction explained to the pt, who understands and agrees with discharge home. El paciente est mdicamente estable [facility]. Prescripciones necesarias: Prednisona 10 mg 6 comprimidos por va oral aden 10 marley. Seguido de 4 tabletas por va oral aden 2 marley, seguido de 2 tabletas por va oral aden 2 marley. # 48 Aspirina 81 mg alicia pestaa por va oral alicia vez al da a las 8 am. # 30 Pepcid 20 mg alicia pestaa por va oral dos veces al da, de 8 a.m. y 8 p.m. # 28 Meclizine 25 mg alicia pestaa por va oral segn sea necesario para el mareo hasta jas veces por da (cada 8 horas). # 42 Por favor, mantenga leo medicamento para la presin arterial. Orme leo presin arterial en casa y lleve un diario. Tasha un seguimiento con PMD o [facility], dentro de la primera semana despus del a lta. Llame al para hacer alicia venita. Por favor tasha un seguimiento con el Dr. Strong, ENT, para la prueba de audicin. Pt puede requerir tratamiento adicional si el mareo no mejora. En [place] de que regrese a [facility], tasha un seguimiento con PMD dentro de la primera semana despus del dagmar. Y tasha un seguimiento con un mdico ENT en [place] despus de completar el tratamiento con prednisona. Si los sntomas empeoran, dirjase al [facility] ms cercano para alicia evaluacin adicional. Instruccin explicada al PT, que entiende y est de acuerdo con el dagmar del hogar. Referrals: Sonu Strong MD [Staff Provider] - Attending/Attestation - Attestation I have personally seen and examined this patient.: Yes I have fully participated in the care of the patient.: Yes I have reviewed all pertinent clinical information, including history, physical exam and plan: Yes Notes (Text): Patient seen, examined, case discussed with certified medical biller. Patient seen this morning with son present at bedside. Patient has been spoken evaluated by ear nose and throat doctor suspected for rapid labyrinthitis. Recommended for steroid therapy. As well as outpatient hearing test. Patient was also seen by physical therapy recommended for Daniels walker. Son notes that she does have a rolling walker at home advised to use it. Brain MRI noted for for symptoms related to chronic sinusitis. Noted patient discussed with patient's son planning on bringing patient back to [facility] since she was on here for vacation. I did advise him to to follow- up with an appearance nose and throat doctor [place] her [place] country as well as her PMD. In terms of medical records I did advise her to call the office tomorrow in terms of imaging that she has completed care bring back with her PMD in her home country. Medications on discharge include the following: Aspirin 81 mg 1 tab p.o. daily as a cardioprotective agent in light of patient's history of hypertension Antivert 25 mg p.o. 3 times daily as needed for dizziness Prednisone 10 mg tab to use as the following taper: 6 tabs times 6 days then 4 tabs times 2 days, 2 tabs times 2 days and then stop Pepcid 20 mg p.o. twice daily has a GI prophylaxis while patient is on steroid treatment Advised to follow-up with ENT as outpatient as well as for hearing test. Noted ENT did not report if patient is labyrinthitis is refractory to p.o. steroid may may need IV injection treatment. This is a brief summary of patient's hospitalization please refer to EMR for full detail record thank you. <Erick Ortiz - Last Filed: 07/21/18 19:07> Provider - Provider Date of Admission: 07/19/18 19:38 Attending physician: Vicky Rodrigues DO Consults: 07/20/18 07:26 Neurology Consult Routine Comment: Consulting Provider: Bandar Dejesus Consulting Physician: Bandar Dejesus Reason for Consult: new onset vertigo, tinnitus 07/20/18 11:00 ENT [Otolaryngology Consult] Routine Consulting Provider: Sonu Strong Consulting Physician: Sonu Strong Reason for Consult: tinnitus, vertigo Time Spent in preparation of Discharge (in minutes): 35 Diagnosis - Discharge Diagnosis (1) Acute labyrinthitis Status: Acute Hospital Course - Lab Results Lab Results: Micro Results 07/20/18 09:50 Urine Random Urine Culture - Final No Growth (<1,000 CFU/ML) Most Recent Lab Values WBC 4.2 K/uL (4.8-10.8) L 07/21/18 07:54 RBC 4.33 Mil/uL (3.80-5.20) 07/21/18 07:54 Hgb 12.7 g/dL (11.0-16.0) 07/21/18 07:54 Hct 38.0 % (34.0-47.0) 07/21/18 07:54 MCV 87.7 fL (81.0-99.0) 07/21/18 07:54 MCH 29.3 pg (27.0-31.0) 07/21/18 07:54 MCHC 33.4 g/dL (33.0-37.0) 07/21/18 07:54 RDW 14.3 % (11.5-14.5) 07/21/18 07:54 Plt Count 177 K/uL (130-400) 07/21/18 07:54 MPV 8.8 fL (7.2-11.7) 07/21/18 07:54 Neut % (Auto) 44.3 % (50.0-75.0) L 07/21/18 07:54 Lymph % (Auto) 47.1 % (20.0-40.0) H 07/21/18 07:54 [place] % (Auto) 6.4 % (0.0-10.0) 07/21/18 07:54 Eos % (Auto) 2.0 % (0.0-4.0) 07/21/18 07:54 Baso % (Auto) 0.2 % (0.0-2.0) 07/21/18 07:54 Neut # (Auto) 1.9 K/uL (1.8-7.0) 07/21/18 07:54 Lymph # (Auto) 2.0 K/uL (1.0-4.3) 07/21/18 07:54 [place] # (Auto) 0.3 K/uL (0.0-0.8) 07/21/18 07:54 Eos # (Auto) 0.1 K/uL (0.0-0.7) 07/21/18 07:54 Baso # (Auto) 0.0 K/uL (0.0-0.2) 07/21/18 07:54 PT 11.4 SECONDS (9.7-12.2) 07/19/18 18:27 INR 1.0 07/19/18 18:27 APTT 35 SECONDS (21-34) H 07/19/18 18:27 Sodium 140 mmol/L (132-148) 07/21/18 07:54 Potassium 4.2 mmol/L (3.6-5.2) 07/21/18 07:54 Chloride 107 mmol/L (98-107) 07/21/18 07:54 Carbon Dioxide 28 mmol/L (22-30) 07/21/18 07:54 Anion Gap 9 (10-20) L 07/21/18 07:54 BUN 11 mg/dL (7-17) 07/21/18 07:54 Creatinine 0.8 mg/dL (0.7-1.2) 07/21/18 07:54 Est GFR ( Amer) > 60 07/21/18 07:54 Est GFR (Non-Af Amer) > 60 07/21/18 07:54 POC Glucose (mg/dL) 137 mg/dL (65-110) H 07/19/18 18:04 Random Glucose 86 mg/dL (65-105) 07/21/18 07:54 Hemoglobin A1c 5.8 % (4.2-6.5) 07/20/18 08:10 Calcium 9.3 mg/dl (8.6-10.4) 07/21/18 07:54 Phosphorus 4.2 mg/dL (2.5-4.5) 07/21/18 07:54 Magnesium 1.9 mg/dL (1.6-2.3) 07/21/18 07:54 Total Bilirubin 0.3 mg/dL (0.2-1.3) 07/21/18 07:54 AST 20 U/L (14-36) 07/21/18 07:54 ALT 19 U/L (9-52) 07/21/18 07:54 Alkaline Phosphatase 82 U/L (38-126) 07/21/18 07:54 Total Creatine Kinase 42 U/L (30-135) 07/20/18 05:23 CK-MB (Mass) 0.44 ng/mL (0.0-3.38) 07/20/18 05:23 Troponin I < 0.0120 ng/mL (0.00-0.120) 07/20/18 05:23 Total Protein 6.1 g/dL (6.3-8.3) L 07/21/18 07:54 Albumin 3.5 g/dL (3.5-5.0) 07/21/18 07:54 Globulin 2.6 gm/dL (2.2-3.9) 07/21/18 07:54 Albumin/Globulin Ratio 1.4 (1.0-2.1) 07/21/18 07:54 Urine Color Yellow (YELLOW) 07/20/18 09:50 Urine Clarity Clear (Clear) 07/20/18 09:50 Urine pH 5.0 (5.0-8.0) 07/20/18 09:50 Ur Specific [place] 1.018 (1.003-1.030) 07/20/18 09:50 Urine Protein Negative mg/dL (NEGATIVE) 07/20/18 09:50 Urine Glucose (UA) Normal mg/dL (Normal) 07/20/18 09:50 Urine Ketones Negative mg/dL (NEGATIVE) 07/20/18 09:50 Urine Blood Negative (NEGATIVE) 07/20/18 09:50 Urine Nitrate Negative (NEGATIVE) 07/20/18 09:50 Urine Bilirubin Negative (NEGATIVE) 07/20/18 09:50 Urine Urobilinogen Normal mg/dL (0.2-1.0) 07/20/18 09:50 Ur Leukocyte Esterase Neg Partha/uL (Negative) 07/20/18 09:50 Urine WBC (Auto) 1 /hpf (0-5) 07/20/18 09:50 Urine RBC (Auto) 1 /hpf (0-3) 07/20/18 09:50 Ur Squamous Epith Cells < 1 /hpf (0-5) 07/20/18 09:50 Urine Bacteria Rare (<OCC) 07/20/18 09:50 - Hospital Course Hospital Course: On admission: 67 F w/ PMhx of HTN presents to ED for dizziness & nausea. Patient states symptoms began in the morning after she woke up and noticed symptoms progressively got worse, prompting her to the hospital. Patient describes the dizziness as she is spinning around. Patient denies vomiting, SOB, chest pain, headaches, vision changes. Patient admits to ringing in the ear since this morning. Patient reports she occasionally uses some type of spray to clean ears; however, she has not been able to fully clean her ears today. Patient denies sick contacts, recent illness. Patient reports having traveled from [facility] approximately 15 days prior. Denies headaches, vision changes, fevers, chills, chest pain, SOB, cough, abdominal pain, constipation, diarrhea, dysuria. Hospital course: Head CT shows no acute intracranial pathology. EKG showed sinus bradycardia. Troponin x1 was normal. Echocardiogram completed due to mumur heard on admission exam, reading pending. Neurology consulted, Dr. Dejesus. MRI with and without contrast showed no acute intracranial pathology, mild chronic changes, chronic maxillary sinusitis and moderate bilateral mastoid effusions. ENT, Dr. Strong, consulted. ENT reports pt's exam and MRI findings consistent with labyrinthitis, would like pt to complete 10 day course of Prednisone 60 mg PO once daily followed by 4 day taper. Pt will need outpatient hearing examination and potentially streoid injection if symptoms do not resolve. Pt's symptoms gradually improved during hospitalization. On discharge interview, pt tolerating PO, ambulating with rolling walker (which she has at home as well), dizziness is controlled. Denies fever, chills, chest pain, sob, lightheadedness, focal weakness, abdominal pain, n/v/d. This is a summary of the hospital course. Please see EMR for full details. Patient is medically stable for discharge home as per Dr. Rodrigues. Prescriptions needed: Prednisone 10 mg 6 tab by mouth for 10 days. Followed by 4 tabs by mouth for 2 days, Followed by 2 tabs by mouth for 2 days. #48 Aspirin 81 mg one tab by mouth once daily at 8 am. #30 Pepcid 20 mg one tab by mouth twice daily, 8 am and 8 pm. #28 Meclizine 25 mg one tab by mouth as needed for dizziness up to three times per day (ever 8 hours). #42 Please hold your blood pressure medication. Take your Blood pressure at home and keep a diary. Follow up with PMD, or [facility], within 1 week of discharge. Please call to make an appointment. Please follow up with Dr. Strong, ENT, for hearing test. Pt may require further treatment if dizziness does not improve. Should pt return to [facility], please follow up with PMD within 1 week of discharge. And follow up with ENT physician in [facility] after completing Prednisone treatment. Son reports that pt has a rolling walker at home, which she uses at baseline. If symptoms worsen, please head to the nearest Emergency Department for further evaluation. Instruction explained to the pt, who understands and agrees with discharge home. Discharge Exam - Head Exam Head Exam: ATRAUMATIC, NORMAL INSPECTION - Eye Exam Eye Exam: EOMI, Normal appearance, PERRL - ENT Exam ENT Exam: Mucous Membranes Moist - Respiratory Exam Respiratory Exam: Clear to PA & Lateral - Cardiovascular Exam Cardiovascular Exam: REGULAR RHYTHM, +S1, +S2. absent: Tachycardia, Irregular Rhythm - GI/Abdominal Exam GI & Abdominal Exam: Normal Bowel Sounds, Soft, Unremarkable. absent: Tenderness - Extremities Exam Extremities exam: normal inspection, pedal pulses present - Neurological Exam Neurological exam: Alert, CN II-XII Intact, Oriented x3 - Psychiatric Exam Psychiatric exam: Normal Affect, Normal Mood - Skin Skin Exam: Dry, Normal Color, Warm
--- NOTE | 2018-07-21 11:10 | MRI ---
Date of service: 07/20/2018 PROCEDURE: MRI BRAIN WITH AND WITHOUT CONTRAST HISTORY: vertigo, tinnitus COMPARISON: CT head without contrast from 07/19/2018. TECHNIQUE: Multiplanar, multisequence MR images of the brain were obtained with and without intravenous contrast enhancement. 14 mL Omniscan was injected intravenously FINDINGS: HEMORRHAGE: None DWI: No evidence of an acute or early subacute infarction. BRAIN PARENCHYMA: There are mild chronic microangiopathic changes. There is no mass, mass effect or abnormal extra-axial fluid collection. There is no territorial infarction. The midline sagittal structures are normal. ENHANCEMENT: No abnormal intracranial enhancement. VENTRICLES: There is mild age-related global parenchymal volume loss and proportionate enlargement of the ventricles and cortical sulci. CRANIUM: There is normal bone marrow signal pattern. ORBITS: Grossly unremarkable. PARANASAL SINUSES/MASTOIDS: There is a retention cyst/polyp in the left maxillary sinus. There is mild mucosal thickening in the remaining paranasal sinuses, worse in the right maxillary sinus. There are moderate bilateral pleural effusions. VASCULAR SYSTEM: There are normal signal voids in the larger intracranial arteries. OTHER FINDINGS: None . IMPRESSION: 1. No acute intracranial abnormality. 2. Mild chronic microangiopathic changes and mild age-related global parenchymal volume loss. 3. Chronic maxillary sinusitis and moderate bilateral mastoid effusions.
[2018-07-21] MEDS: Lactobacillus Acidophilus 500 MU Cap PO SCH (11:39)
[2018-07-21] MEDS: Sodium Chloride 0.9% 1,000 ML IV SCH (11:43)
[2018-07-21 12:21] VITALS: PULSE 62
[2018-07-21] MEDS ORDERED: Pneumococcal 23-Valent Vaccine IM ONE (13:00)
--- NOTE | 2018-07-21 14:51 | CP.PCM.PN ---
<Claire Ordaz P - Last Filed: 07/21/18 14:46> Subjective - Date & Time of Evaluation Date of Evaluation: 07/21/18 Time of Evaluation: 10:00 - Subjective Subjective: Progress report for Dr. Dejesus. Patient seen and examined at bedside. No acute events overnight. Reports continued dizziness that worsens with head movement. She was able to walk around with physicial therapy today. Denies slurred speech, focal weakness and numbne ss, nausea and vomiting. Objective - Vital Signs/Intake and Output Vital Signs (last 24 hours): Temp Pulse Resp BP Pulse Ox 98.5 F 62 20 139/80 97 07/21/18 08:05 07/21/18 12:00 07/21/18 08:05 07/21/18 08:05 07/21/18 08:05 - Medications Medications: Current Medications Aspirin (Ecotrin) 81 mg PO DAILY [facility] Last Admin: 07/21/18 11:40 Dose: 81 mg Heparin Sodium (Porcine) (Heparin) 5,000 units SC Q8 [facility] Last Admin: 07/21/18 13:04 Dose: 5,000 units Ceftriaxone Sodium 1 gm/ (Sodium Chloride) 100 mls @ 100 mls/hr IVPB DAILY [facility]; Protocol Last Admin: 07/21/18 11:40 Dose: 100 mls/hr Lactobacillus Acidophilus (Lactobacillus) 1 cap PO BID [facility] Last Admin: 07/21/18 11:39 Dose: 1 cap Meclizine HCl (Antivert) 25 mg PO Q6 [facility] Last Admin: 07/21/18 11:42 Dose: 25 mg - Labs Labs: 07/21/18 07:54 07/21/18 07:54 PT 11.4 SECONDS (9.7-12.2) 07/19/18 18:27 INR 1.0 07/19/18 18:27 APTT 35 SECONDS (21-34) H 07/19/18 18:27 - Additional Findings Additional findings: - Constitutional Appears: Non-toxic, No Acute Distress - Head Exam Head Exam: ATRAUMATIC, NORMOCEPHALIC - Eye Exam Eye Exam: EOMI, Normal appearance, PERRL. absent: Nystagmus Pupil Exam: NORMAL ACCOMODATION - Neck Exam Neck exam: Positive for: Full Rom, Normal Inspection - Respiratory Exam Respiratory Exam: NORMAL BREATHING PATTERN. absent: Respiratory Distress - Extremities Exam Extremities exam: Positive for: normal inspection. Negative for: tenderness - Neurological Exam Neurological exam: Alert, Oriented x3 Additional comments: No facial asymmetry. 5/5 muscle strength all extremities, sensation intact. No dysdiadochokinesis. Patient able to stand steadily. - Psychiatric Exam Psychiatric exam: Normal Affect, Normal Mood - Skin Skin Exam: Dry, Intact, Normal Color Assessment and Plan - Assessment and Plan (Free Text) Assessment: 67 year old female admitted for persistent dizziness and new onset R ear hearing loss Plan: -CT head: no acute abnormality -Brain MRI: No intracranial abnormality. Mild chronic microangiopathic changes and mild age-related global parenchymal volume loss. Moderate bilateral mastoid effusions. -Symptoms likely labrynthitis, non neurologic in origin -Stable from neurological standpoint Discussed with Dr. Dejesus. Claire Ordaz, PGY-1 <Bandar Dejesus - Last Filed: 07/21/18 17:20> Objective - Vital Signs/Intake and Output Vital Signs (last 24 hours): Temp Pulse Resp BP Pulse Ox 98.5 F 62 20 139/80 97 07/21/18 08:05 07/21/18 12:00 07/21/18 08:05 07/21/18 08:05 07/21/18 08:05 - Labs Labs: 07/21/18 07:54 07/21/18 07:54 PT 11.4 SECONDS (9.7-12.2) 07/19/18 18:27 INR 1.0 07/19/18 18:27 APTT 35 SECONDS (21-34) H 07/19/18 18:27 Assessment and Plan - Assessment and Plan (Free Text) Plan: All medical record entries made by the Resident were at my direction and personally dictated by me. I have reviewed the chart and agree that the record accurately reflects my personal performance of the history, physical exam, medical decision making, and the department course for this patient. I have also personally directed, reviewed, and agree with the discharge instructions and disposition. Miss Moody is a 67 yr old woman with severe dizziness that is improved, most likely labyrinthitis. WE will recommend vestibular therapy. Dr. Dejesus
--- NOTE | 2018-07-21 15:21 | CON ---
DATE: 07/21/2018 REASON FOR CONSULTATION: Hearing loss. REQUESTING PHYSICIAN: Vicky Rodrigues DO HISTORY OF PRESENT ILLNESS: This is a 67-year-old female with a two-day history of hearing loss on the right ear, constant, severe in intensity. She also has ringing in the ear on the right, constant, mild to moderate in intensity for two days and she also has dizziness, constant, moderate for two day. PAST MEDICAL HISTORY: As noted in the chart by me. MEDICATIONS: As noted in the chart by me. ALLERGIES: NOTED IN THE CHART BY ME. PHYSICAL EXAMINATION: HEENT: Head atraumatic, normocephalic. FACE: Good facial movements bilaterally. CONSTITUTIONAL: Well-fed, well-nourished. COMMUNICATION: Communicates well and appropriately. EXTERNAL NOSE AND EARS: No masses, no lesions, no erythema, no edema. ORAL CAVITY AND OROPHARYNX: No masses, no lesions, no erythema, no edema. LIPS AND GUMS: No masses, no lesions, no erythema, no edema. NECK: Supple. THYROID: No thyromegaly, no goiter. LYMPH NODES: No lymphadenopathy of the neck. CAT scan of the head was reviewed by me. No ear infection or mastoiditis noted. ASSESSMENT: 1. Sensorineural hearing loss of right. 2. Tinnitus of right. 3. Vertigo. 4. Deviated septum. PLAN: The patient is to get a hearing assessment as an outpatient. She also needs to be placed on prednisone 60 mg a day for 10 days with 40 mg day #11 and #12, 20 mg day #13 and #14. The patient is to have a hearing test done as an outpatient since hearing tests are not done in this hospital. She is to follow up to see if she has improved. If she has not, she needs intratympanic steroid injection. Sonu Strong MD
--- NOTE | 2018-07-21 22:24 | CARD ---
APPROVED REPORT Date of service: 07/21/2018 EXAM: Two-dimensional and M-mode echocardiogram with Doppler and color Doppler. Other Information Quality : GoodRhythm : INDICATION Dizziness and Vertigo Systolic murmur RISK FACTORS Hypertension 2D DIMENSIONS IVSd1.2 (0.7-1.1cm)LVDd2.6 (3.9-5.9cm) PWd1.1 (0.7-1.1cm)LA Zaeazm10 (18-58mL) LVDs1.8 (2.5-4.0cm)FS (%) 29.0 % LVEF (%)70.0 (>50%)LVEF (Morgan's)74.85 % IVC0.00 cm M-Mode DIMENSIONS RVDd1.33 (2.1-3.2cm)Left Atrium (MM)3.63 (2.5-4.0cm) IVSd1.00 (0.7-1.1cm)Aortic Root2.55 (2.2-3.7cm) LVDd3.95 (4.0-5.6cm)Aortic Cusp Exc.1.55 (1.5-2.0cm) PWd0.92 (0.7-1.1cm)FS (%) 42 % LVDs2.29 (2.0-3.8cm)LVEF (%)74 (>50%) Mitral Valve MV E Vcbysqxr38.7cm/sMV A Sxgvadeg76.7cm/sE/A ratio0.9 TDI Lateral E' Peak V9.90cm/sMedial E' Peak V9.00cm/sE/Lateral E'7.8 E/Medial E'8.6 Tricuspid Valve TR Peak [id number]/sTR Peak [id number] LEFT VENTRICLE The left ventricle is normal size. There is normal left ventricular wall thickness. The left ventricular function is normal. The left ventricular ejection fraction is within the normal range. There is normal LV segmental wall motion. Transmitral Doppler flow pattern is abnormal. RIGHT VENTRICLE The right ventricle is normal size. ATRIA The left atrium size is normal. The right atrium size is normal. AORTIC VALVE The aortic valve is normal in structure. MITRAL VALVE Mitral regurgitation is trace. TRICUSPID VALVE There is mild tricuspid regurgitation. <Conclusion> Normal LV systolic function. Diastolic dysfunction. Normal chamber size. Trace MR. Mild TR.
[2018-07-22] MEDS ORDERED: Pneumococcal 23-Valent Vaccine IM ONE (10:00)
--- NOTE | 2018-07-22 22:58 | CARD ---
APPROVED REPORT Date of service: 07/20/2018 EKG Measurement Heart [id number] <Conclusion> Sinus bradycardia Nonspecific T wave abnormality Abnormal ECG
[2018-07-23 08:27] VITALS: O2SAT 99
== END 2018-07-21 14:30 | disposition home or self-care (01) ==
LOC: C.ER 17:43 → C.9E 19:38 → C.9I 07-20 04:23 → C.5S 07-20 12:44
PROVIDERS: ADMIT Hospitalist; ATTEND Hospitalist
DX: H83.01 Labyrinthitis, right ear (principal); H90.41 Sensorineural hearing loss, unilateral, right ear, with unrestricted hearing on the contralateral side; H93.11 Tinnitus, right ear; I10 Essential (primary) hypertension; J32.9 Chronic sinusitis, unspecified; J34.2 Deviated nasal septum; Z79.82 Long term (current) use of aspirin; K29.70 Gastritis, unspecified, without bleeding
CPT/HCPCS: 36415; 70450; 70553; 80053; 81001; 82948; 83036; 83735; 84100; 84484; 85025; 85610; 85730; 87070; 87081; 87086; 93005; 93306; 96361; 96365; 96366; 96372; 96375; 97116; 97162; 97166; 97530; 99285; A9579; G0378; G8978; G8979; G8987; G8988; J0696; J1644; J2405; J7030; J7040